=== PATIENT | female | born 1975 | race Caucasian/White ===

== ENCOUNTER 2017-12-20 03:05 | Emergency (ER) | payer MEDICAID, OTHER ==
[2017-12-20] MEDS ORDERED: NS 1,000 ML IV ONE (03:33)
[2017-12-20] MEDS ORDERED: PROMETHAZINE HCL 25 MG/ML INJ IVP ONE (03:33)
[2017-12-20] MEDS ORDERED: HYDROmorphONE/DILAUDID 1 MG/ML INJ IVP ONE (03:33)
--- NOTE | 2017-12-20 03:36 | EDPHY ---
H & P Stated Complaint: abd pain, N/V Time Seen by Provider: 12/20/17 03:19 HPI/ROS: Chief Complaint: Abdominal pain, nausea, vomiting HPI: 42-year-old woman began having nausea vomiting abdominal pain at 7 o' clock this evening. She has a history of small-bowel obstruction for years ago. This was attributed to adhesions from her prior appendectomy when she was 13 and to a large uterine fibroid. She has not had this fibroid removed. Pain is about an 8/10. She has vomited several times. No blood or coffee-grounds emesis. No fevers or chills. No cough. No urinary symptoms. Patient states her last menstrual cycle is now. She does not believe she is . ROS: 10 point Review of Systems is negative except as noted in the HPI. PMH: Small-bowel obstruction, appendectomy, uterine fibroid Social History: No smoking, no alcohol, no recreational drug use Family History: non-contributory Physical Exam: Gen: Awake, Alert, No Distress HEENT: Nose: no rhinorrhea Eyes: PERRLA, EOMI Mouth: Moist mucosa Neck: Supple, no JVD Chest: nontender, lungs clear to auscultation Heart: S1, S2 normal, no murmur Abd: Soft, distended, palpable firm uterus. Diffuse upper abdominal tenderness , voluntary guarding Back: no CVA tenderness, no midline tenderness Ext: no edema, non-tender Skin: no rash Neuro: CN II-XII intact, Sensation grossly intact, Strength 5/5 in bilateral upper and lower extremities - Personal History LMP (Females 10-55): Now - Medical/Surgical History Hx Asthma: No Hx Chronic Respiratory Disease: No Hx Diabetes: No Hx Cardiac Disease: No Hx Renal Disease: No Hx Cirrhosis: No Hx Alcoholism: No Hx HIV/AIDS: No Hx Splenectomy or Spleen Trauma: No Other PMH: Medical-Denies. Surgical-Appy,. Problems with gallbladder 2012. - Social History Smoking Status: Never smoked Constitutional: Initial Vital Signs Heart Rate 84 12/20/17 03:06 Respiratory Rate 20 12/20/17 03:06 Blood Pressure 133/83 H 12/20/17 03:06 O2 Sat (%) 97 12/20/17 03:06 O2 Delivery Mode Room Air Allergies/Adverse Reactions: Penicillins Allergy (Verified 01/28/14 20:28) Home Medications: Medication Instructions Recorded Multivitamins [Tab-A-Sujatha] 1 each PO DAILY 06/20/13 Medical Decision Making - Diagnostics Imaging Results: CT scan of the abdomen pelvis shows 2 small loops of bowel which are not distended which is consistent with enteritis or ileus. There is no bowel obstruction. Patient has a dramatically enlarged uterus which has doubled in size from her prior CT scan. Study interpreted by Dr. Anne. ED Course/Re-evaluation: Patient's pain has resolved after IV fluids and analgesics. She is tolerating p.o.. Abdomen is soft and benign. CT scan results noted. I have discussed with them using the forming machine operator video line that she has significant uterine fibroids. She will likely benefit from a hysterectomy. She has no OBGYN at [facility]. Will discharge with follow up with her OBGYN, return for any concerns. - Data Points Laboratory Results: Laboratory Results 12/20/17 03:35 12/20/17 03:35 12/20/17 12/20/17 12/20/17 03:35 03:35 03:35 WBC 8.34 10^3/uL 10^3/uL (3.80-9.50) RBC 4.33 10^6/uL 10^6/uL (4.18-5.33) Hgb 14.0 g/dL g/dL (12.6-16.3) Hct 40.2 % % (38.0-47.0) MCV 92.8 fL fL (81.5-99.8) MCH 32.3 pg pg (27.9-34.1) MCHC 34.8 g/dL g/dL (32.4-36.7) RDW 13.1 % % (11.5-15.2) Plt Count 237 10^3/uL 10^3/uL (150-400) MPV 9.7 fL fL (8.7-11.7) Neut % (Auto) 80.9 % H % (39.3-74.2) Lymph % (Auto) 12.9 % L % (15.0-45.0) [place] % (Auto) 5.3 % % (4.5-13.0) Eos % (Auto) 0.5 % L % (0.6-7.6) Baso % (Auto) 0.4 % % (0.3-1.7) Nucleat RBC Rel Count 0.0 % % (0.0-0.2) Absolute Neuts (auto) 6.75 10^3/uL H 10^3/uL (1.70-6.50) Absolute Lymphs (auto) 1.08 10^3/uL 10^3/uL (1.00-3.00) Absolute Monos (auto) 0.44 10^3/uL 10^3/uL (0.30-0.80) Absolute Eos (auto) 0.04 10^3/uL 10^3/uL (0.03-0.40) Absolute Basos (auto) 0.03 10^3/uL 10^3/uL (0.02-0.10) Absolute Nucleated RBC 0.00 10^3/uL 10^3/uL (0-0.01) Immature Gran % 0.0 % % (0.0-1.1) Immature Gran # 0.00 10^3/uL 10^3/uL (0.00-0.10) Sodium 141 mEq/L mEq/L (135-145) Potassium 4.1 mEq/L mEq/L (3.3-5.0) Chloride 106 mEq/L mEq/L (97-110) Carbon Dioxide 25 mEq/l mEq/l (22-31) Anion Gap 10 mEq/L mEq/L (8-16) BUN 14 mg/dL mg/dL (7-23) Creatinine 0.7 mg/dL mg/dL (0.6-1.0) Estimated GFR > 60 Glucose 129 mg/dL H mg/dL (70-100) Calcium 9.7 mg/dL mg/dL (8.5-10.4) Beta HCG, Qual NEGATIVE Urine Color Urine Appearance Urine pH Ur Specific [place] Urine Protein Urine Ketones Urine Blood Urine Nitrate Urine Bilirubin Urine Urobilinogen Ur Leukocyte Esterase Urine RBC Urine WBC Ur Epithelial Cells Amorphous Sediment Urine Mucus Urine Glucose 12/20/17 03:15 WBC RBC Hgb Hct MCV MCH MCHC RDW Plt Count MPV Neut % (Auto) Lymph % (Auto) [place] % (Auto) Eos % (Auto) Baso % (Auto) Nucleat RBC Rel Count Absolute Neuts (auto) Absolute Lymphs (auto) Absolute Monos (auto) Absolute Eos (auto) Absolute Basos (auto) Absolute Nucleated RBC Immature Gran % Immature Gran # Sodium Potassium Chloride Carbon Dioxide Anion Gap BUN Creatinine Estimated GFR Glucose Calcium Beta HCG, Qual Urine Color YELLOW Urine Appearance HAZY Urine pH 8.0 H (5.0-7.5) Ur Specific [place] 1.023 (1.002-1.030) Urine Protein NEGATIVE (NEGATIVE) Urine Ketones NEGATIVE (NEGATIVE) Urine Blood 3+ H (NEGATIVE) Urine Nitrate NEGATIVE (NEGATIVE) Urine Bilirubin NEGATIVE (NEGATIVE) Urine Urobilinogen NEGATIVE EU EU (0.2-1.0) Ur Leukocyte Esterase NEGATIVE (NEGATIVE) Urine RBC 1-3 /hpf /hpf (0-3) Urine WBC 1-3 /hpf /hpf (0-3) Ur Epithelial Cells TRACE /lpf /lpf (NONE-1+) Amorphous Sediment PRESENT /hpf /hpf (NONE-1+) Urine Mucus TRACE /lpf /lpf (NONE-1+) Urine Glucose NEGATIVE (NEGATIVE) Medications Given: Discontinued Medications Hydromorphone HCl (Dilaudid) 0.5 mg IVP EDNOW ONE Stop: 12/20/17 03:34 Last Admin: 12/20/17 03:42 Dose: 0.5 mg Sodium Chloride (Ns) 1,000 mls @ 0 mls/hr IV ONCE ONE; Wide Open PRN Reason: Protocol Stop: 12/20/17 03:34 Last Admin: 12/20/17 03:43 Dose: 1,000 mls Promethazine HCl (Phenergan) 12.5 mg IVP ONCE ONE Stop: 12/20/17 03:34 Last Admin: 12/20/17 03:42 Dose: 12.5 mg Departure - Departure Disposition: Home, Routine, Self-Care Clinical Impression: Acute gastroenteritis, Uterine fibroid Condition: Good Instructions: Gastroenteritis (ED), Ondansetron (By mouth) Additional Instructions: You may take Zofran as needed for nausea and vomiting. Follow up with your doctor at [facility] to discuss treatment for uterine fibroids. Return to the emergency department for increasing abdominal pain, uncontrolled nausea vomiting, fevers, chills, or any other concerns. Referrals: [facility],. [Clinic] - As per Instructions
[2017-12-20 03:45] LABS: PLATELET COUNT 237 10^3/uL (150-400)
[2017-12-20] MEDS ORDERED: IOPAMIDOL (ISOVUE-300) 100 ML BTL ONE (04:16)
[2017-12-20] MEDS ORDERED: ONDANSETRON 4MG PREPACK#2 BTL TAKEHOME ONE (05:03)
[2017-12-20 05:20] VITALS: BP 132/71
== END 2017-12-20 05:18 | disposition home or self-care (01) ==
DX: K52.9 Noninfective gastroenteritis and colitis, unspecified (principal); D25.9 Leiomyoma of uterus, unspecified
CPT/HCPCS: 96374; J1170; J2550; Q9967